=== PATIENT | female | born 1990 | race Caucasian/White ===

== ENCOUNTER 2025-01-27 09:19 | Outpatient (CLI) | payer OTHER, SELFPAY ==
[2025-01-29 00:48] LABS: HPV Source Cervix; HPV, High Risk by TMA Not Detected
== END 2025-01-27 09:20 | disposition home or self-care (01) ==
PROVIDERS: PCP Family Medicine; Visit Provider Family Medicine
DX: Z12.4 Encounter for screening for malignant neoplasm of cervix (principal); Z11.51 Encounter for screening for human papillomavirus (HPV)
CPT/HCPCS: 87624; 87625; 88141; 88142